=== PATIENT | male | born 1990 | race Caucasian/White ===

== ENCOUNTER 2022-08-11 18:17 | Emergency (ER) | payer SELFPAY ==
[~2022-08-11] VITALS: Ht 175.3 cm; Wt 50.0 kg
[2022-08-11] MEDS ORDERED: IBUPROFEN 600MG TABLET PO ONE (22:45)
[2022-08-11 23:21] LABS: CHLORIDE 104 mEq/L (98-107)
[2022-08-11 23:22] LABS: BASOPHILS % 0.4 % (0.0-2.0); EOSINOPHILS % 0.4 % (0.0-5.0); HEMATOCRIT. 44.9 % (42.0-52.0); HEMOGLOBIN. 15.1 g/dL (14.0-18.0); LYMPHOCYTES % 23.5 % (20.0-50.0); MEAN CORPUSCULAR HEMOGLOBIN 31.5 pg (28.0-32.0); MEAN CORPUSCULAR VOLUME 93.5 fL (80.0-94.0); MEAN PLATELET VOLUME 8.6 fl (7.4-10.4); MONOCYTES % 9.9 % (2.0-8.0); NEUTROPHILS % 65.8 % (40.0-76.0); PLATELET 229 x1000/uL (130-400); RED CELL DISTRIBUTION WIDTH 13.7 % (11.6-14.6)
[2022-08-11 23:46] LABS: CLARITY URINE CLEAR (CLEAR); COLOR URINE DARK YELLOW (YELLOW); KETONES URINE 2+ (NEGATIVE); LEUKOCYTE ESTERASE URINE 1+ (NEGATIVE); NITRITE URINE NEGATIVE (NEGATIVE); OCCULT BLOOD URINE NEGATIVE (NEGATIVE); PH URINE 5.5 (4.5-8.0); PROTEIN URINE 1+ (NEGATIVE); SPECIFIC GRAVITY URINE 1.035 (1.005-1.030)
[2022-08-12 00:13] LABS: PROTHROMBIN TIME 10.8 sec (9.6-11.0)
[2022-08-12] MEDS ORDERED: CEFTRIAXONE SODIUM 500 MG/VIAL IM ONE (00:30)
[2022-08-12] MEDS ORDERED: LEVOFLOXACIN 500MG TABLET PO ONE (00:30)
[2022-08-12] MEDS ORDERED: LEVO-65 MT (00:58)
[2022-08-12 01:00] VITALS: BP 138/85
[2022-08-16 05:12] LABS: NEISSERIA GONORRHOEAE NAA Negative (Negative)
== END 2022-08-12 01:23 | disposition home or self-care (01) ==
LOC: ER 18:17
DX: N45.3 Epididymo-orchitis (principal); Z87.442 Personal history of urinary calculi; Z88.0 Allergy status to penicillin
CPT/HCPCS: 36415; 76870; 80053; 81003; 85025; 85610; 87086; 87491; 87591; 93976; 96372; 99284; J0696